=== PATIENT | female | born 1985 ===

== ENCOUNTER 2019-05-14 12:36 | Emergency (ER) | payer MEDICAID ==
[~2019-05-14] VITALS: Ht 172.7 cm; Wt 73.9 kg
[2019-05-14 12:49] VITALS: BP 126/55
[2019-05-14 12:52] VITALS: BP 126/55
--- NOTE | 2019-05-14 12:53 | NUR ---
ARRIVAL PATIENT ARRIVED TO [facility], C/O OF LOWER BACK AND COCCYX PAIN FROM A FALL X1 WEEK AGO, WAS SEEN BY HER PCP AND GIVEN NORCO 5MG TO GO HOME WITH, PATIENT HAS BEEN TAKING THE MEDICATION AT NIGHT WITH NO RELIEF OF PAIN, IT LEAVING TOWN IN A FW DAYS, CAME TO THE ED FOR EVAL.
--- NOTE | 2019-05-14 12:59 | ER.PDOC ---
General Chief Complaint: Lower Back Pain or Injury Stated Complaint: LOWER BACK PAIN Time seen by MD: 12:56 Source: patient Exam Limitations: no limitations History of Present Illness Initial Comments Lower back pain S/P fall 1 week ago. Severity/Quality: moderate Method of Injury: fell Associated Symptoms: lower back pain Allergies: Coded Allergies: codeine (Verified Allergy, Unknown, ITCHING, 05/14/19) Home Meds No Active Prescriptions or Reported Meds Past Medical History Medical History: no pertinent history Surgical History: hysterectomy Social History Smoking: non-smoker Alcohol Use: occassionally Drug Use: none Review of Systems Constitutional: no symptoms reported Respiratory: no symptoms reported Cardiovascular: no symptoms reported Gastrointestinal: no symptoms reported Musculoskeletal: see HPI All Other Systems: Reviewed and Negative Physical Exam General Appearance: No Apparent Distress, WD/WN Neck: Non-Tender, Normal Alignment Cardiovascular/Respiratory: Regular Rate, Rhythm, No M/R/G, Normal Peripheral Pulses, No JVD, Normal Breath Sounds, No Respiratory Distress Gastrointestinal: Normal Bowel Sounds, No Organomegaly, No Pulsatile Mass, Non Tender, Soft Back: Vertebral Tenderness (L spine) Extremities: No Evidence of Injury, Normal Range of Motion, Non-Tender, No Pedal Edema, Pelvis Stable Neuro/Psych: Alert, community mental health worker nml/symmetrical, mood/effect nml, No Motor/Sensory Deficits, Relexes nml Results/Orders Results/Orders Orders - RICHAR GRAHAM MD Xr Lspine 2-3v (05/14/19 12:53) Vital Signs Date Time Temp Pulse Resp B/P (MAP) Pulse Ox O2 Delivery O2 Flow Rate FiO2 05/14/19 12:52 98.3 88 18 05/14/19 12:49 98.3 88 18 126/55 (78) 94 Room Air 05/14/19 12:49 98.3 88 18 94 Room Air EKG/XRAY/CT/US XRAY Comments: No fracture of L spine Course Vitals & review Data Vital Sign - Last 24 Hours 05/14/19 05/14/19 05/14/19 12:49 12:49 12:52 Temp 98.3 98.3 98.3 Pulse 88 88 88 Resp 18 18 18 B/P (MAP) 126/55 (78) Pulse Ox 94 94 O2 Delivery Room Air Room Air Sepsis Infection Criteria Pres: None O2 Sat by Pulse Oximetry: 94 Departure Time of Disposition: 14:04 Disposition: 01 HOME, SELF-CARE Impression: Primary Impression: Low back pain Condition: Stable Additional Instructions: Continue Hydrocodone at home Diclofenac Flexeril F/U with your PCP in 1 week Scripts No Active Prescriptions or Reported Meds Duration or Time Spent with Pa: 45 mins Problem Qualifiers Primary Impression: Low back pain Chronicity: acute Back pain laterality: unspecified Sciatica presence: without sciatica Qualified Codes: M54.5 - Low back pain SANTOS,RICHAR Rodriguez MD May 14, 2019 12:59
--- NOTE | 2019-05-14 13:53 | DIREP ---
PROCEDURE:XRAY SPINE LUMBAR 2-3 VWS COMPARISON:None. INDICATIONS:Pain/injury FINDINGS: Three views of the lumbar spine, AP lateral and cone-down view of the lumbosacral junction. ALIGNMENT:Preserved. VERTEBRAE:No fracture. DISK SPACES:Mild intervertebral disc height loss at L4-L5 and L5-S1. SACROILIAC JOINTS:Normal. OTHER:Normal. CONCLUSION: 1. Mild intervertebral disc height loss at L4-L5 and L5-S1. Dictated by: Radha Tidwell MD on 05/14/2019 at 01:51 PM
[2019-05-14 14:13] VITALS: BP 128/58
[2019-05-14 14:17] VITALS: BP 128/58
== END 2019-05-14 14:17 | disposition home or self-care (01) ==
LOC: ER 12:36
DX: M54.5 Low back pain (principal); Z90.710 Acquired absence of both cervix and uterus; Z88.5 Allergy status to narcotic agent; W19.XXXA Unspecified fall, initial encounter; Y93.89 Activity, other specified; Y92.89 Other specified places as the place of occurrence of the external cause; Y99.8 Other external cause status
CPT/HCPCS: 72100; 99284